=== PATIENT | male | born 1980 | race Caucasian/White ===

== ENCOUNTER 2022-04-15 13:04 | Emergency (ER) | payer OTHER ==
[~2022-04-15] VITALS: Ht 167.6 cm; Wt 83.9 kg
[2022-04-15 13:13] VITALS: BP 125/86
--- NOTE | 2022-04-15 13:26 | NUR ---
Celia carrion in [facility] - 04/15/22 at 1440 by [facility]WAME cleared by dr barajas, discharged home w/ prescription in stable condition.
--- NOTE | 2022-04-15 16:12 | NUR ---
medically cleared. covid result provided to [employer] officers. d/c in stable condition.
== END 2022-04-15 16:13 ==
LOC: ER 13:12
DX: Z02.89 Encounter for other administrative examinations (principal)
CPT/HCPCS: 99283; 87426; C9803